=== PATIENT | female | born 1960 | race Caucasian/White ===

== ENCOUNTER 2020-01-15 07:20 | Day surgery (SDC) | payer BC ==
[~2020-01-15] VITALS: Ht 172.7 cm; Wt 84.8 kg
[~2020-01-15 07:20] MED LIST: ADVIL PM CAPLE1 EACH PO; BUDEPRION XL150 MG PO; CITRUCEL479 GM PO; FLOVENT DISKUS50 MCG INH; FLOVENT HFA12 GM; FOLIC ACID1 MG PO; GABAPENTIN300 MG PO; LEVOTHYROXINE150 MCG PO; METHOTREXATE2.5 MG PO; NORCO 5-325 TA1 EACH PO; REMICADE100 MG/10 IV
[2020-01-15] MEDS ORDERED: HYDROCODON-ACE1 EA10 PO (08:43)
--- NOTE | 2020-01-15 08:54 | NUR ---
01/15/20 0854 Siomara Castro [facility]-PT ARRIVES TO PACU ON RA TALKING TO STAFF. VSS. RA SATS >90%.
--- NOTE | 2020-01-16 09:26 | OR ---
[facility] [address] [place], [place] [address] Signed DATE OF OPERATION: 01/15/2020 SURGEON: Antonio Hudson MD PREOPERATIVE DIAGNOSIS: Trigger finger, right long and ring. POSTOPERATIVE DIAGNOSIS: Trigger finger, right long and ring. PROCEDURE PERFORMED: Trigger finger release, right long and ring. BRIM STITCHER: None. ANESTHESIA: General. TOURNIQUET TIME: 20 minutes. BRIEF HISTORY: Guerrero is a 59-year-old female with progressive worsening of locking in her right hand. Risks and benefits of treatment nonoperatively were discussed with her. She had actually undergone that with Dr. Baldwin and wished to proceed with the releases. DESCRIPTION OF PROCEDURE: Once consent was obtained, she was taken to the operating room. After adequate anesthesia, the arm was prepped and draped in a standard sterile fashion. The long finger was released 1st through a 1 cm incision. Subcutaneous dissection was taken down to the tendon sheath. Under direct loupe magnification, the tendon sheath was entered and the A1 isak was released. The ring finger was released similarly. The patient was then asked to move her hand. She was able to fully flex and fully extend without any locking or triggering. Both wounds were then copiously irrigated and closed with 3-0 nylon and injected with 3 mL 0.25% plain Marcaine. The wound was dressed with bacitracin, Adaptic, 4 x 8s, and gauze. She tolerated the procedure well. All sponge, needle, and instrument counts were correct. Electronically Signed By: ANTONIO HUDSON MD 01/16/20 0926 PATIENT NAME: GUERRERO ESCAMILLA OPERATIVE REPORT DATE OF : 56 REPORT #: [id number] PHYSICIAN: ANTONIO HUDSON MD PCP: RICHY MO MD REPORT IS CONFIDENTIAL AND NOT TO BE RELEASED WITHOUT AUTHORIZATION [address] [place], [place] [address] Signed Antonio Hudson MD /[facility] /[id number] Copies: ~ Electronically Signed By: ANTONIO HUDSON MD 01/16/20 0926 PATIENT NAME: GUERRERO ESCAMILLA OPERATIVE REPORT DATE OF : 56 REPORT #: [id number] PHYSICIAN: ANTONIO HUDSON MD PCP: RICHY MO MD REPORT IS CONFIDENTIAL AND NOT TO BE RELEASED WITHOUT AUTHORIZATION
== END 2020-01-15 09:20 | disposition home or self-care (01) ==
LOC: DS 07:20 → OPS 07:20 → DS 09:20
PROVIDERS: Specialist
PROC: 0LN70ZZ Release Right Hand Tendon, Open Approach (ICD-10-PCS; 2020-01-15)
PROC: 0LN70ZZ Release Right Hand Tendon, Open Approach (ICD-10-PCS; principal; 2020-01-15 09:30)
DX: M65.341 Trigger finger, right ring finger (principal); M65.331 Trigger finger, right middle finger; E03.9 Hypothyroidism, unspecified; Z79.899 Other long term (current) drug therapy; Z88.2 Allergy status to sulfonamides; Z87.891 Personal history of nicotine dependence
CPT/HCPCS: 01810; J0690; J2704; J7121

== ENCOUNTER 2020-07-03 21:26 | Emergency (ER) | payer BC ==
[~2020-07-03] VITALS: Ht 172.7 cm; Wt 80.3 kg
[~2020-07-03 21:26] MED LIST changes: +HYDROCODON-ACE1 EA10 PO
[2020-07-03] MEDS ORDERED: LEVOTHYROXINE200 MCG PO (21:36)
== END 2020-07-03 22:03 | disposition home or self-care (01) ==
LOC: ED 21:26
DX: H11.31 Conjunctival hemorrhage, right eye (principal); J45.909 Unspecified asthma, uncomplicated; F17.200 Nicotine dependence, unspecified, uncomplicated; Z88.2 Allergy status to sulfonamides; Z79.899 Other long term (current) drug therapy
CPT/HCPCS: 99283

== ENCOUNTER 2024-03-27 06:09 | Day surgery (SDC) | payer BC ==
[~2024-03-27] VITALS: Ht 172.7 cm; Wt 83.9 kg
--- NOTE | ~2024-03-27 | OR ---
[facility] [address] [place], [place] [address] Draft DATE OF OPERATION: 03/27/2024 SURGEON: Lorenzo Kramer MD PREOPERATIVE DIAGNOSIS: History of anal carcinoma, status post excision and chemo radiation therapy in 2009. POSTOPERATIVE DIAGNOSES: 1. Radiation proctitis (asymptomatic). 2. Polyp, rectosigmoid and transverse colon. PROCEDURES: Total colonoscopy to cecum with cold morcellation polypectomy x2 and biopsy of rectum. ANESTHESIA: Intravenous sedation; fentanyl 100 mcg and Versed 6 mg. INDICATIONS FOR THE PROCEDURE: This 64-year-old white woman is a patient of Dr. Boone. She underwent treatment by mi for anal carcinoma in 2013, which included excision and subsequent chemo and radiation therapy. She has had no evidence of recurrence. She last underwent colonoscopy in 2017, where she was noted to have radiation proctitis and a small polyp of transverse colon. She had hyperplastic change of the rectum. She is admitted at this time to undergo surveillance colonoscopy, understand the risk of bleeding, infection, and perforation. FINDINGS: The prep was excellent. Complete colonoscopy was undertaken to the cecum without question. Full intubation of the cecum was accomplished. There was a small probably hyperplastic polyp of the transverse colon and another such polyp at the rectosigmoid, both excised with cold morcellation technique. She continues to have radiation proctitis that appeared to be nonbleeding and is asymptomatic. Biopsies were obtained. Additionally, she has external hemorrhoidal change with no evidence of recurrent anal carcinoma. DESCRIPTION OF PROCEDURE: The patient was brought to the endoscopy suite and placed in lateral decubitus position given intravenous sedation to the point of slurred speech and nystagmus. Digital rectal examination was normal other than external hemorrhoidal changes. There was no sign of suspicion to the external hemorrhoids as regard to the anal carcinoma recurrence. PATIENT NAME: GUERRERO ESCAMILLA OPERATIVE REPORT DATE OF : 56 REPORT #: [id number] PHYSICIAN: LORENZO KRAMER MD PCP: FELICIA BOONE MD REPORT IS CONFIDENTIAL AND NOT TO BE RELEASED WITHOUT AUTHORIZATION [facility] [address] [place], [place] [address] Draft An Olympus video colonoscope was passed into the rectum and manipulated throughout the colon ultimately intubating the cecum itself. The ileocecal valve and appendiceal orifice were normal and notably her prep was quite excellent. The scope was withdrawn from the cecum and examination showed no sign of abnormality into the transverse colon, where a small polyp was noted, this was excised with cold morcellation technique. It was likely hyperplastic. Further withdrawal showed no abnormality until the rectosigmoid, where small probably hyperplastic polyp was noted, this too was excised. Biopsies were then obtained of the rectum, which showed appearance typical of radiation proctitis with edematous napier. No visible blood vessels other than telangiectasia type blood vessels. The scope was withdrawn through the anal canal showing no sign of abnormality. Re-evaluation of the external anal area confirmed external hemorrhoids, but no sign of suspicion to them. She was taken to the recovery room in good condition. CONCLUDING DIAGNOSIS: 1. Radiation proctitis. 2. Two small polyps excised. PLAN: Recommend repeat colonoscopy in three years or sooner if symptoms. She will return to the ongoing care of Dr. Boone. Lorenzo Kramer MD J[facility] /[id number] cc: Dr. Boone Copies: ~ PATIENT NAME: GUERRERO ESCAMILLA OPERATIVE REPORT DATE OF : 56 REPORT #: [id number] PHYSICIAN: LORENZO KRAMER MD PCP: FELICIA BOONE MD REPORT IS CONFIDENTIAL AND NOT TO BE RELEASED WITHOUT AUTHORIZATION
[~2024-03-27 06:09] MED LIST changes: +FLUTICASONE PRO16 GM NAS; +LEVOTHYROXINE200 MCG PO; +MIDAZOLAM HCL 5 MG/5 ML VIAL IV PRN; +SUDOGEST30 MG PO; +VENTOLIN HFA18 GM INH; +fentaNYL citrate 100 MCG/2 ML VIAL IV PRN
[2024-03-27 06:31] VITALS: BP 144/75
[2024-03-27] MEDS ORDERED: fentaNYL citrate 100 MCG/2 ML VIAL ONE (06:48)
[2024-03-27] MEDS ORDERED: MIDAZOLAM HCL 5 MG/5 ML VIAL ONE (06:48)
[2024-03-27] MEDS ORDERED: IBLOOD GLUCOSE TEST STRIP 1 EA TEST VI PRN (07:00)
[2024-03-27] MEDS ORDERED: LACTATED RINGER'S 1,000 ML IV SCH (07:00)
[2024-03-27] MEDS ORDERED: LIDOCAINE HCL 1% 5 ML SDV INJ ONE (07:00)
--- NOTE | 2024-03-27 07:28 | NUR ---
PRE-SURGICAL VISIT. PT EXPRESSED CONFIDENCE IN CARE, INDICATED NO ANXIETY. UPPER SHAPER PROVIDED SUPPORTIVE PRESENCE, HOSPITALITY, PRAYER. PT EXPRESSED GRATITUDE.
--- NOTE | 2024-03-27 08:20 | NUR ---
03/27/24 0820 Christina Prabhakar 0805- PT ARRIVES TO PACU AWAKE AND TALKING, ALTHOUGH DROWSY. PT IS ABLE TO REPORT NO PAIN OR NAUSEA. RESP EVEN AND UNLABORED. OXYGEN SAT HIGH 90'S TO 100% ON 3L VIA CO2. 0815- DR. KRAMER AT THE BEDSIDE TALKING WITH THE PT. 0817- OXYGEN TITRATED OFF. 0819- PT PASSING FLATUS.
[2024-03-27 08:35] VITALS: BP 143/88
--- NOTE | 2024-03-31 16:42 | PATH ---
[facility] [address] [place], [place] [address] Signed SPECIMEN(S): A TRANSVERSE POLYP SPECIMEN(S): B RECTAL POLYP SPECIMEN(S): C RECTUM BIOPSY SPECIMEN SOURCE: A. TRANSVERSE POLYP B. RECTAL POLYP C. RECTUM BIOPSY CLINICAL HISTORY: Pre-: 2014 anal carcinoma, 2017 polyp at splenic flexure. Post: Radiation proctitis polyps x 2 FINAL PATHOLOGIC DIAGNOSIS: A. Transverse polyp: - Tubular adenoma (two fragments). B. Rectal polyp: - Hyperplastic polyp (one fragment). C. Rectum, biopsy: - Benign colonic mucosa with slight hyperplastic features (two fragments). JVR:cml MICROSCOPIC EXAMINATION: Histologic sections of all submitted blocks are examined by light microscopy. These findings, together with the gross examination, support the pathologic diagnosis. GROSS DESCRIPTION: A. The specimen, labeled and designated "Green, transverse polyp," is received in formalin and consists of four fragments of soft quiroz tissue that are up to 0.4 cm in greatest dimension. Entirely submitted in (A1). B. The specimen, labeled and designated "Green, rectal polyp," is received in formalin and consists of one fragment of soft quiroz tissue that is up to 0.2 cm in greatest dimension. Entirely submitted in (B1). C. The specimen, labeled and designated "Green, rectal biopsy," is received in formalin and consists of two fragments of soft quiroz tissue that are up to 0.2 cm in greatest dimension. Entirely submitted in (C1). TW (under the direct supervision of a pathologist) PATIENT NAME: GUERRERO ESCAMILLA PATHOLOGY DATE OF : 56 REPORT #: [id number] PHYSICIAN: IGNACIO CLARKE PCP: FELICIA CLAUDIO MD REPORT IS CONFIDENTIAL AND NOT TO BE RELEASED WITHOUT AUTHORIZATION [facility] [address] [place], [place] [address] Signed The Gross Description was prepared using a voice recognition system. The report was reviewed for accuracy; however, sound-alike word errors, addition and/or deletions may occur. If there is any question about this report, please contact Client Services. PERFORMING LABORATORY: Technical component was performed by [facility], [address] [place] [address] (CLIA# [id number]). Professional interpretation was performed by [facility], [address] [place] [id number] (CLIA#: [id number]). Diagnostician: Reece Akhtar MD Pathologist Electronically Signed 03/31/2024 Copies: ~ PATIENT NAME: GUERRERO ESCAMILLA PATHOLOGY DATE OF : 56 REPORT #: [id number] PHYSICIAN: IGNACIO CLARKE PCP: FELICIA CLAUDIO MD REPORT IS CONFIDENTIAL AND NOT TO BE RELEASED WITHOUT AUTHORIZATION
== END 2024-03-27 08:43 | disposition home or self-care (01) ==
LOC: OPS 06:09 → DS 06:09 → OPS 07:30 → DS 08:45
PROVIDERS: ATTEND Surgery
PROC: 0DBL8ZX Excision of Transverse Colon, Via Natural or Artificial Opening Endoscopic, Diagnostic (ICD-10-PCS; 2024-03-27)
PROC: 0DBN8ZX Excision of Sigmoid Colon, Via Natural or Artificial Opening Endoscopic, Diagnostic (ICD-10-PCS; 2024-03-27)
PROC: 0DBP8ZX Excision of Rectum, Via Natural or Artificial Opening Endoscopic, Diagnostic (ICD-10-PCS; principal; 2024-03-27 07:30)
DX: Z12.11 Encounter for screening for malignant neoplasm of colon (principal); D12.3 Benign neoplasm of transverse colon; K62.1 Rectal polyp; K62.7 Radiation proctitis; K64.4 Residual hemorrhoidal skin tags
CPT/HCPCS: 99153; G0500; J2250; J3010; J7121